=== PATIENT | female | born 1990 | race Two or more races ===

== ENCOUNTER 2023-09-20 16:49 | Emergency (ER) | payer OTHER ==
[~2023-09-20] VITALS: Ht 162.6 cm; Wt 70.3 kg
[2023-09-20] MEDS ORDERED: BUPROPION XL300 MG (17:11)
== END 2023-09-20 19:42 | disposition home or self-care (01) ==
LOC: ER 16:50
DX: M79.671 Pain in right foot (principal); W22.8XXA Striking against or struck by other objects, initial encounter; Y93.89 Activity, other specified; Y92.480 Sidewalk as the place of occurrence of the external cause